=== PATIENT | male | born 1970 | race Caucasian/White ===

== ENCOUNTER 2017-03-08 09:36 | Inpatient (IN) | payer OTHER ==
[~2017-03-08] VITALS: Ht 175.3 cm; Wt 96.2 kg
[~2017-03-08 09:36] MED LIST: ATOR20TA58 PO; FLUT1DIS3 IH; INSU100I13 SQ; INSU100I9 SQ
[2017-03-08 10:14] VITALS: BP 109/73
[2017-03-08 10:17] VITALS: BP 109/73
[2017-03-08 11:01] LABS: BASO # 0.1 x10^3/uL (0.0-0.2); BASO % 1 % (0-3); EOS # 0.1 x10^3/uL (0.0-0.7); EOS % 1 % (0-3); HEMATOCRIT 29.8 % (39.0-53.0); HEMOGLOBIN 9.6 g/dL (13.0-17.5); LYMPH # 0.8 x10^3/uL (1.0-4.8); LYMPH % 5 % (24-48); MEAN CORPUSCULAR HEMOGLOBIN 27 pg (25-35); MEAN CORPUSCULAR HGB CONC 32 g/dL (31-37); MEAN CORPUSCULAR VOLUME 85 fL (79-100); MONO # 1.4 x10^3/uL (0.0-1.1); MONO % 9 % (0-9); NEUT # 13.2 x10^3uL (1.8-7.7); NEUT % 85 % (31-73); PLATELET COUNT 487 x10^3/uL (140-400); RED BLOOD COUNT 3.53 x10^6/uL (4.30-5.70); RED CELL DISTRIBUTION WIDTH 15.3 % (11.5-14.5); WHITE BLOOD COUNT 15.6 x10^3/uL (4.0-11.0)
[2017-03-08 11:26] LABS: ALBUMIN 2.6 g/dL (3.4-5.0); ALBUMIN/GLOBULIN RATIO 0.7 (1.0-1.7); CALCIUM 8.5 mg/dL (8.5-10.1); CREATININE 1.2 mg/dL (0.7-1.3); GFR 64.9; POTASSIUM 5.6 mmol/L (3.5-5.1); TOTAL PROTEIN 6.5 g/dL (6.4-8.2)
[2017-03-08 11:32] LABS: TOTAL BILIRUBIN 1.5 mg/dL (0.2-1.0)
[2017-03-08] MEDS ORDERED: VANCOMYCIN PER PHARMACY MC PRN (12:25)
[2017-03-08] MEDS ORDERED: ATOR40TA59 PO (12:32)
--- NOTE | 2017-03-08 12:36 | RAD ---
Exam: AP portable chest. History: Shortness of breath, chest pressure. Comparison: None. Findings: Cardiac silhouette appears borderline in size. Median sternotomy wires are present. No pneumothorax is seen. There is apparent rounded consolidation at the right lung base which could measure up to 4 cm. There is opacification of left inferior hemithorax, could be combination of pleural effusion and atelectasis versus pneumonia or other airspace disease. Pulmonary vascularity appears accentuated. Impression: 1. Pulmonary vascularity appears accentuated, may indicate pulmonary vascular congestion. 2. Opacification of left inferior hemithorax, which may be from combination of pleural effusion and associated atelectasis versus pneumonia. 3. Apparent rounded consolidation at the right lung base. This could represent focus of pneumonia or possibly mass. 4. Further evaluation of above abnormalities could be made with CT of the chest with intravenous contrast.
[2017-03-08] MEDS ORDERED: TEMA15CA PO (12:46)
[2017-03-08] MEDS ORDERED: CYCL10TA2 PO (12:48)
[2017-03-08] MEDS ORDERED: DOXY100C2 PO (12:48)
[2017-03-08] MEDS ORDERED: SPIR25TA3 PO (12:48)
[2017-03-08] MEDS ORDERED: CARV3.12 PO (12:49)
[2017-03-08] MEDS ORDERED: OXYC-323 PO (12:49)
[2017-03-08] MEDS ORDERED: ASPI81TA2 PO (12:50)
[2017-03-08] MEDS ORDERED: LISI2.5T PO (12:50)
[2017-03-08] MEDS ORDERED: VANCOMYCIN 2 GM in IV NORMAL SALINE 500ML 500 ML IV ONE (13:00)
[2017-03-08] MEDS ORDERED: TEMAZEPAM 15 MG CAPSULE PO PRN (13:15)
[2017-03-08] MEDS ORDERED: CYCLOBENZAPRINE 10 MG TABLET. PO PRN (13:15)
[2017-03-08 13:16] LABS: % BANDS 4 % (0-9); % LYMPHS 4 % (24-48); % METAS 2 % (0-0); % MONOS 5 % (0-10); % SEGS 85 % (35-66)
[2017-03-08] MEDS ORDERED: SPIRONOLACTONE 25 MG TABLET PO SCH (13:30)
[2017-03-08] MEDS ORDERED: LISINOPRIL 2.5 MG TABLET PO SCH (13:30)
[2017-03-08 13:33] LABS: ANISOCYTOSIS MOD; HYPOCHROMIA SLIGHT; MICROCYTOSIS SLIGHT; PLT ESTIMATE INCREASED (ADEQUATE); POLYCHROMASIA MOD
[2017-03-08 13:34] LABS: TOXIC GRANULATION SLIGHT
--- NOTE | 2017-03-08 13:53 | EKG ---
[address] [address] Test Date: 2017-03-08 Test Time: 10:10:05 Pat Name: ALEXANDRIA STEINBERG Department: Room: 111 A Gender: M Charger: KYLIE : 1970 Requested By: DEMETRIUS LOPEZ Order Number: [id number] Reading MD: Federico Tracy Measurements Intervals [place] Rate: 97 P: 43 DE: 154 QRS: 110 QRSD: 80 T: 156 QT: 362 QTc: 464 Interpretive Statements SINUS RHYTHM POSSIBLE RIGHT SIDED EKG CANNOT RULE OUT HIGH LATERAL INFARCT Electronically Signed On 03-09-2017 15:51:47 CDT by Federico Tracy
[2017-03-08] MEDS: DOXYCYCLINE HYCLATE 100 MG TABLET PO SCH ×2 (14:25→21:29)
[2017-03-08] MEDS: ASPIRIN 81 MG TAB.CHEW PO SCH (14:25)
[2017-03-08] MEDS: CARVEDILOL 3.125 MG TABLET PO SCH ×2 (14:26→17:41)
[2017-03-08] MEDS: INSULIN DETEMIR 300 UNITS/3 ML INSULN.PEN. SQ SCH ×2 (14:29→21:32)
[2017-03-08 15:25] VITALS: BP 113/73
--- NOTE | 2017-03-08 16:19 | RAD ---
Bilateral lower extremity venous Doppler ultrasound History: Bilateral lower extremity swelling. Comparison: None. Procedure: Color Doppler, spectral Doppler, and grayscale images are obtained with and without compression in the area of the common femoral vein, superficial femoral vein - femoral vein junction, main femoral vein (superficial femoral vein) and popliteal vein. Veins of the proximal calf are also imaged. Findings: There is occlusive deep venous thrombosis involving bilateral popliteal veins extending into the tibioperoneal trunks and the proximal bilateral calf veins. Thrombosis is presumably acute. There is also evidence of a deep venous thrombosis involving the left femoral vein in the distal thigh. Bilateral common femoral veins appear patent as well as bilateral femoral veins of the proximal and mid thighs. Impression: Examination is positive for bilateral deep venous thrombosis as described above.
--- NOTE | 2017-03-08 17:00 | PDOC2 ---
CONSULT The patient has been seen and examined and the full consult has been dictated.~ I have summarized the most important points for review while the note is being transcribed.~ Please see the dictation for complete details. Summary: ADHF: Renetta riojas CMP/CAD: Echo and old reports DCT: Renetta Salinas Problems: SAVI FARRAR MD Mar 08, 2017 17:00
[2017-03-08] MEDS: APIXABAN 5 MG TABLET. PO SCH (17:40)
[2017-03-08] MEDS: FUROSEMIDE INJ 100 MG in IV NORMAL SALINE 100ML 90 ML IV PRN (17:42)
[2017-03-08 19:44] VITALS: BP 103/66
[2017-03-08] MEDS ORDERED: MORPHINE SULFATE 2 MG/ML DISP.SYRIN. IV PRN (19:45)
[2017-03-08 20:35] LABS: BILIRUBIN,URINE NEG (NEG); CLARITY,URINE CLEAR; COLOR,URINE AMBER; GLUCOSE,URINE >=1000 mg/dL (NEG)
[2017-03-08 20:36] LABS: NITRITE,URINE NEG (NEG); UROBILINOGEN,URINE 4 mg/dL (0.2 mg/dL)
[2017-03-08 20:38] LABS: RBC,URINE OCC /HPF (0-2)
[2017-03-08 20:39] LABS: BACTERIA,URINE 0 /HPF (0-FEW); SQUAMOUS EPITHELIAL CELL,UR OCC /LPF
[2017-03-08] MEDS ORDERED: ENOXAPARIN ** NOTE DOSE ** SYRINGE SQ SCH (21:00)
[2017-03-08] MEDS ORDERED: ATORVASTATIN CALCIUM 20 MG TABLET PO SCH (21:00)
[2017-03-08] MEDS ORDERED: ENOXAPARIN 40 MG/0.4 ML DISP.SYRIN. SQ SCH (21:00)
[2017-03-08] MEDS ORDERED: APIXABAN 5 MG TABLET. PO SCH (21:00)
--- NOTE | 2017-03-08 21:15 | CONS ---
DATE OF CONSULTATION: CARDIOLOGY CONSULTATION REQUESTING PHYSICIAN: Jerry Palacios MD REASON FOR CONSULTATION: Edema and shortness of breath. HISTORY: This is a 46-year-old white male, who was in [place] recently on work when he developed nausea and vomiting, and was taken to a local hospital there, and had a positive troponin and abnormal ECG and had cardiac catheterization, which showed 3-vessel disease. Three days later, he underwent a CABG with RADER to the LAD, vein graft to the diagonal and a vein graft to the obtuse marginal, on 02/25/2017. He had a long postoperative course. He was discharged, and then took a 2-day road trip back and got back to [place] last night. This morning, he went to see Dr. Palacios because of persistent edema, and blistering new on the right leg (he previously had blistering of the left leg), and he was admitted to the hospital. He does complain of shortness of breath. He denies any chest pain other than incisional pain. REVIEW OF SYSTEMS: Shortness of breath, incisional chest pain, edema, blistering. There are no palpitations. Rest of the 10 organ review of system is negative. PREVIOUS MEDICAL HISTORY: He has had prior EKGs and stress tests which are negative. He recently had a cardiac catheterization which showed multivessel disease. The report is pending. He had CABG as described above. He has a longstanding history of diabetes for 16 years. There is no prior history of strokes. FAMILY HISTORY: His father at age 49 with an AK. His mother of noncardiac causes at the age of 47. None of his siblings have coronary artery disease. SOCIAL HISTORY: He takes alcohol on social occasions. He does not smoke. He is . He travels for work. CURRENT MEDICATIONS: (that he was discharged from [place]), aspirin 81 mg, Lipitor 40 mg, Coreg 3.125 b.i.d., cyclobenzaprine, doxycycline, insulin, lisinopril 2.5, oxycodone, spironolactone and temazepam. PHYSICAL EXAMINATION: GENERAL: He appears fairly comfortable lying supine. VITAL SIGNS: His temperature is 97.9. His pulse rate is 94 and regular with a blood pressure of 113/70. O2 sats are at 90% on room air. HEENT: Pupils equal and reactive. Extraocular movements are normal. Sclerae clear. Mucous membranes are moist. NECK: Supple. No thyromegaly. Jugular venous pressure is difficult to assess, but does not appear to be significantly elevated. There are no carotid bruits. His apical impulse is not palpable. There are no parasternal pulsations or heaves. HEART: First and second heart sounds appeared normal. There are no murmurs, rubs or gallops. CHEST: Normal to percuss. Chest expansion is diminished. There are severely diminished breath sounds, left worse than right. He has crackles on the left base. EXTREMITIES: Revealed moderate pitting edema bilaterally with blistering in both legs. He has a reddish purplish mottling in the sole of his left leg. There are no other skin rashes. NEUROLOGIC: There is no facial asymmetry. There are no motor or sensory deficits. INVESTIGATIONS: His EKG shows prior anteroseptal infarct without any ST or T-wave abnormalities. LABORATORY DATA: Show WBC of 15.6, hemoglobin of 9.6. Sodium is 129, potassium 5.6, BUN 34, creatinine 1.2. His ALT is 92, alkaline phosphatase is 227. His ProBNP is 10,828, albumin 2.6. His chest x-ray shows evidence of pulmonary vascular congestion, possible consolidation of the right lung base, and left pleural effusion. His lower extremity venous duplex shows evidence of DVT affecting bilateral popliteal veins. IMPRESSION: 1. Acute exacerbation of systolic congestive heart failure: We shall place the patient on Lasix drip. The patient is fluid overloaded. We will follow his labs. 2. Cardiomyopathy, ischemic: He was told that his heart is weak enough and that he might need a transplant. We shall try and get the echo report from [place]. I will repeat an echo over here. 3. Coronary artery disease: He is status post recent CABG as described above. He has no angina. 4. Hyperkalemia: I will hold his ANOOP inhibitors and spironolactone for now. 5. Deep venous thrombosis: We shall start him on Eliquis. He had a 2-day road trip without any anticoagulation and in the presence of poor cardiac output resulted in this. 6. Diabetes: Longstanding for 16 years. Per primary care. 7. Anemia: Postoperative. 8. Increased WBC: Question cause. He is on antibiotics. Thank you for the consult. SAVI FARRAR MD DR: Samantha JOB#: [id number] / [id number]
[2017-03-08] MEDS ORDERED: IV NORMAL SALINE 250ML 250 ML ONE (21:25)
--- NOTE | 2017-03-08 22:20 | ACF ---
Admission Criteria Forms HEART FAILURE Clinical Indications for Admission to Inpatient Care (Place 'X' for any and all applicable criteria): Admission is indicated by ANY ONE of the following(1)(2)(3)(4): [ ]I. Severe electrolyte abnormalities requiring inpatient care(9) [ ]II. Hemodynamic instability [ ]III. Anasarca [ ]IV. Acute cardiac ischemia causing or associated with failure (Also use Angina or Myocardial Infarction as appropriate) [ ]V. Cardiac arrhythmias of immediate concern [ ]. Precipitating cause for acute decompensation (eg, pneumonia, pulmonary embolism) requires inpatient care [ ]VII. Pulmonary edema that is very severe (eg, mechanical ventilation needed, imminent or likely, need for 100% oxygen to keep oxygen saturation above 90%) [ ]VIII. Inpatient admission required rather than observation care (Also use Heart Failure: Observation Care as appropriate) because of ANY ONE of the following: [ ]a) Pulmonary edema that is severe or worsening as indicated by ALL of the following: [ ]i) New need for oxygen therapy to keep oxygen saturation above 90% (or increased FiO2 need from baseline) [ ]ii) Has not improved sufficiently with emergency department or observation care IV diuretics or other heart failure treatments[C] [ ]b) Cognitive impairment that is severe or persistent [ ]c) Increased creatinine (new on laboratory test) with reduction of more than 50% in estimated glomerular filtration rate from baseline. [ ]d) Acute renal insufficiency (progressively (ongoing) rising creatinine (known from past laboratory test) with reduction of more than 25% in estimated glomerular filtration rate from baseline) [ ]e) Acute peripheral ischemia (eg, pulseless, cool, mottled, or cyanotic extremity) [ ]f) Acute renal failure [ ]g) Supplemental O2 or respiratory treatment for >24 hr that are performable only in acute inpatient setting [ ]h) Pulmonary artery catheter monitoring [ ]i) Other condition, treatment or monitoring requiring inpatient admission [X]IX. Contraindications and/or Inappropriate clinical situations for Observational Care in patients with Heart Failure, when ANY ONE of the following is required: [ ]a) Patient with High risk of cardiac embolism (e.g, patients with previous cardiac embolism, LVEF < 40%, age >75 and patients with prosthetic valve) 18 [ ]b) Patient with Moderate risk including DM patient, CAD and patient aged 65-75 [ ]c) Patient with any change in cardiac biomarker especially troponin should be managed as high risk in an inpatient setting 19 [ ]d) Physician judgement irrespective of ECG and other diagnostic findings 20 [ ]e) Patients with hyponatremia have high risk for mortality and require more extensive care and length of stay 21 [X]f) Need for large volume diuresis 21 [ ]g) Presence of renal insufficiency or hypotension limiting speed of diuresis 21 [ ]h) Acute cardiac Ischemia in the elderly 21 [ ]i) Patients with a 30 day risk of mortality based on a multidimensional prognostic index (MPI) [J,]21 [ ]X. General contraindications and/or Inappropriate clinical situations for Observational Care in patients with Heart Failure, when ANY ONE of the following is required: [ ]a) Prediction of prolongation of LOS based on ANY ONE of the following may be considered as a contraindication for observational care 2, 3, 4, 5, 6, 7, 8 , 9, 10, 11 [ ]i) Age > 65 yrs. [ ]ii) Patient arriving by ambulance [ ]iii) Patient with high acuity [ ]iv) Patient requiring vital sign monitoring [ ]v) Patient on IV medication [ ]b) Systolic blood pressures 180mmHg 3,12 [ ]c) Patient with altered mental status including delirium and other alteration of consciousness, (3) [ ]d) Patient whose discharge disposition will be to a senior care home or rehabilitation home should not be managed in Emergency Department Observation Unit. CMS rule requires 3 days hospital stay before such placement.3,13 [ ]e) Patient with failure to thrive due to broad array of etiologies 3,16,17 [ ]f) Inability to ambulate 3,14 Extended stay beyond goal length of stay may be needed for(1)(3)(21)(25): [ ]a) Cardiac ischemia, confirmed or suspected as precipitant [ ]b) Cardiogenic shock or refractory pulmonary edema [ ]c) Acute kidney injury or renal failure [ ]d) Respiratory failure (eg, need for noninvasive or invasive mechanical ventilation) (23) [ ]e) Concomitant pneumonia or significant electrolyte abnormality (eg, severe hyponatremia) [ ]f) Newly diagnosed (new onset) atrial fibrillation [ ]g) Stage IV chronic kidney disease (estimated glomerular filtration rate of less than 30 mL/min/1.73m2 (0.50 mL/sec/1.73m2), and not previously on chronic dialysis The original [facility] content created by [facility] has been revised. The portions of the content which have been revised are identified through the use of italic text or in bold, and [facility] has neither reviewed nor approved the modified material. All other unmodified content is copyright [facility]. Please see references footnoted in the original [facility] edition 2016 Admission Criteria Met?: Yes TARA TODD Mar 08, 2017 22:20
[2017-03-08 22:48] VITALS: BP 96/61
[2017-03-08] MEDS: VANCOMYCIN 1.5 GM in IV NORMAL SALINE 500ML 500 ML IV SCH (23:51)
[2017-03-09] MEDS ORDERED: IV NORMAL SALINE 100ML 100 ML ONE (03:44)
[2017-03-09] MEDS ORDERED: FUROSEMIDE 100 MG/10 ML VIAL ONE (03:44)
[2017-03-09] MEDS: FUROSEMIDE INJ 100 MG in IV NORMAL SALINE 100ML 90 ML IV PRN (03:49)
[2017-03-09 05:05] VITALS: BP 108/70
[2017-03-09 05:48] LABS: BASO # 0.1 x10^3/uL (0.0-0.2); BASO % 1 % (0-3); EOS # 0.1 x10^3/uL (0.0-0.7); EOS % 1 % (0-3); HEMATOCRIT 26.3 % (39.0-53.0); HEMOGLOBIN 8.6 g/dL (13.0-17.5); LYMPH % 7 % (24-48); MEAN CORPUSCULAR HEMOGLOBIN 28 pg (25-35); MEAN CORPUSCULAR HGB CONC 33 g/dL (31-37); MEAN CORPUSCULAR VOLUME 84 fL (79-100); MONO # 1.5 x10^3/uL (0.0-1.1); MONO % 11 % (0-9); NEUT # 11.1 x10^3uL (1.8-7.7); NEUT % 80 % (31-73); PLATELET COUNT 481 x10^3/uL (140-400); RED BLOOD COUNT 3.13 x10^6/uL (4.30-5.70); RED CELL DISTRIBUTION WIDTH 15.2 % (11.5-14.5); WHITE BLOOD COUNT 13.9 x10^3/uL (4.0-11.0)
[2017-03-09 07:50] LABS: CALCIUM 8.2 mg/dL (8.5-10.1); CREATININE 1.3 mg/dL (0.7-1.3); GFR 59.2; POTASSIUM 4.7 mmol/L (3.5-5.1)
[2017-03-09] MEDS ORDERED: PNEUMOC CONJ VACC 23-VALENT 0.5 ML VIAL. VAX IM ONE (09:00)
--- NOTE | 2017-03-09 09:04 | PDOC ---
GARFIELD KERN SAFETY TECHNICIAN 03/09/17 0904: PROGRESS NOTES Diagnosis Problem Problems Medical Problems: (1) Bilateral lower extremity edema Status: Acute (2) Shortness of breath Status: Acute Assessment We are seeing the patient for acute systolic heart failure 1. Acute congestive heart failure: Planning to transfer to . Echo pending. 2. Cardiomyopathy, ischemic: Plan for echo today 3. Coronary artery disease: Status post recent CABG, Symptom free at this point 4. Hyperkalemia: Improved with holding jeremy and Aldactone. 5. Deep venous thrombosis: Continue Eliquis. 6. Diabetes: treatment per primary care. 7. Anemia: Postoperative. 8. Increased WBC: Question cause. He is on antibiotics. Problems: Subjective Says breathing and swelling have improved. Denies any chest pain or palpitations. He had concerns with care and is transferring to . Objective Vital Signs Date Time Temp Pulse Resp B/P Pulse Ox O2 Delivery O2 Flow Rate FiO2 03/09/17 08:02 Room Air 03/09/17 05:05 99.1 86 18 108/70 97 2.0 Intake and Output 03/09/17 07:00 Intake Total 1947.52 ml Output Total 750 ml Balance 1197.52 ml Intake Oral 540 ml IV Total 1407.52 ml Output Urine Total 750 ml Abdomen: Normal bowel sounds, Soft, No tenderness Heart: Regular rate, Normal S1, Normal S2, No murmurs Extremities: Other (+ edemea) General: Alert, Oriented X3, Cooperative HEENT: EOMI, Mucous membr. moist/pink Lungs: Other (few crackles) Psych/Mental Status: Mental status NL, Mood NL Review of Relevant I have reviewed the following items marvel (where applicable) has been applied. Labs Laboratory Tests Test 03/08/17 10:50 03/08/17 11:17 03/08/17 17:03 03/08/17 17:40 White Blood Count 15.6x10^3/uL (4.0-11.0) Red Blood Count 3.53x10^6/uL (4.30-5.70) Hemoglobin 9.6g/dL (13.0-17.5) Hematocrit 29.8% (39.0-53.0) Mean Corpuscular Volume 85fL (79-100) Mean Corpuscular Hemoglobin 27pg (25-35) Mean Corpuscular Hemoglobin Concent 32g/dL (31-37) Red Cell Distribution Width 15.3% (11.5-14.5) Platelet Count 487x10^3/uL (140-400) Neutrophils (%) (Auto) 85% (31-73) Lymphocytes (%) (Auto) 5% (24-48) Monocytes (%) (Auto) 9% (0-9) Eosinophils (%) (Auto) 1% (0-3) Basophils (%) (Auto) 1% (0-3) Neutrophils # (Auto) 13.2x10^3uL (1.8-7.7) Lymphocytes # (Auto) 0.8x10^3/uL (1.0-4.8) Monocytes # (Auto) 1.4x10^3/uL (0.0-1.1) Eosinophils # (Auto) 0.1x10^3/uL (0.0-0.7) Basophils # (Auto) 0.1x10^3/uL (0.0-0.2) Segmented Neutrophils % 85% (35-66) Band Neutrophils % 4% (0-9) Lymphocytes % 4% (24-48) Monocytes % 5% (0-10) Metamyelocytes % 2% (0-0) Toxic Granulation Slight Platelet Estimate Increased (ADEQUATE) Large Platelets Occ Polychromasia Mod Hypochromasia Slight Anisocytosis Mod Microcytosis Slight Sodium Level 129mmol/L (136-145) Potassium Level 5.6mmol/L (3.5-5.1) Chloride Level 95mmol/L (98-107) Carbon Dioxide Level 29mmol/L (21-32) Anion Gap 5 (6-14) Blood Urea Nitrogen 34mg/dL (8-26) Creatinine 1.2mg/dL (0.7-1.3) Estimated GFR (Cockcroft-Gault) 64.9 BUN/Creatinine Ratio 28 (6-20) Glucose Level 355mg/dL (70-99) Calcium Level 8.5mg/dL (8.5-10.1) Total Bilirubin 1.5mg/dL (0.2-1.0) Aspartate Amino Transf (AST/SGOT) 28U/L (15-37) Alanine Aminotransferase (ALT/SGPT) 92U/L (16-63) Alkaline Phosphatase 227U/L (46-116) MQ-Oya-N-Type Natriuretic Peptide 21592rr/mL (0-124) Total Protein 6.5g/dL (6.4-8.2) Albumin 2.6g/dL (3.4-5.0) Albumin/Globulin Ratio 0.7 (1.0-1.7) Glucose (Fingerstick) 331mg/dL (70-99) 311mg/dL (70-99) Lactic Acid Level 1.4mmol/L (0.4-2.0) Test 03/08/17 18:05 03/08/17 20:08 03/09/17 05:30 03/09/17 07:37 Urine Collection Type Unknown Urine Color Candice Urine Clarity Clear Urine pH 5.5 Urine Specific Riley 1.015 Urine Protein 30 mg/dl (NEG-TRACE) Urine Glucose (UA) >=1000mg/dL (NEG) Urine Ketones (Stick) Tracemg/dL (NEG) Urine Blood Trace (NEG) Urine Nitrite Neg (NEG) Urine Bilirubin Neg (NEG) Urine Urobilinogen Dipstick 4mg/dL (0.2 mg/dL) Urine Leukocyte Esterase Neg (NEG) Urine RBC Occ/HPF (0-2) Urine WBC 1-4/HPF (0-4) Urine Squamous Epithelial Cells Occ/LPF Urine Bacteria 0/HPF (0-FEW) Glucose (Fingerstick) 283mg/dL (70-99) White Blood Count 13.9x10^3/uL (4.0-11.0) Red Blood Count 3.13x10^6/uL (4.30-5.70) Hemoglobin 8.6g/dL (13.0-17.5) Hematocrit 26.3% (39.0-53.0) Mean Corpuscular Volume 84fL (79-100) Mean Corpuscular Hemoglobin 28pg (25-35) Mean Corpuscular Hemoglobin Concent 33g/dL (31-37) Red Cell Distribution Width 15.2% (11.5-14.5) Platelet Count 481x10^3/uL (140-400) Neutrophils (%) (Auto) 80% (31-73) Lymphocytes (%) (Auto) 7% (24-48) Monocytes (%) (Auto) 11% (0-9) Eosinophils (%) (Auto) 1% (0-3) Basophils (%) (Auto) 1% (0-3) Neutrophils # (Auto) 11.1x10^3uL (1.8-7.7) Lymphocytes # (Auto) 1.0x10^3/uL (1.0-4.8) Monocytes # (Auto) 1.5x10^3/uL (0.0-1.1) Eosinophils # (Auto) 0.1x10^3/uL (0.0-0.7) Basophils # (Auto) 0.1x10^3/uL (0.0-0.2) Sodium Level 133mmol/L (136-145) Potassium Level 4.7mmol/L (3.5-5.1) Chloride Level 98mmol/L (98-107) Carbon Dioxide Level 31mmol/L (21-32) Anion Gap 4 (6-14) Blood Urea Nitrogen 24mg/dL (8-26) Creatinine 1.3mg/dL (0.7-1.3) Estimated GFR (Cockcroft-Gault) 59.2 Glucose Level 145mg/dL (70-99) Calcium Level 8.2mg/dL (8.5-10.1) Test 03/09/17 07:54 Glucose (Fingerstick) 140mg/dL (70-99) Medications Current Medications Vancomycin HCl 1 each 1 each PRN DAILY PRN MC SEE COMMENTS Last administered on 03/08/17 16:33; Start 03/08/17 at 12:25 Vancomycin HCl 2 gm/Sodium Chloride 500 ml @ 250 mls/hr 1X ONCE IV Last administered on 03/08/17 14:25; Start 03/08/17 at 13:00; Stop 03/08/17 at 14:59 ; Status DC Vancomycin HCl/ Sodium Chloride (Iv Sodium Chloride 0.9% 500ml) 500 ml @ 250 mls/hr Q12H IV Last administered on 03/08/17 23:51; Start 03/09/17 at 00:00 Pneumococcal Polyvalent Vaccine (Pneumovax 23) 0.5 ml ONCE ONCE VAX IM ; Start 03/09/17 at 09:00; Stop 03/09/17 at 09:01 Aspirin (Children'S Aspirin) 81 mg DAILY PO Last administered on 03/08/17 14: 25; Start 03/08/17 at 13:30 Carvedilol (Coreg) 3.125 mg BIDWMEALS PO Last administered on 03/08/17 17:41; Start 03/08/17 at 13:30 Cyclobenzaprine HCl (Flexeril) 10 mg PRN Q8HRS PRN PO MUSCLE SPASMS Last administered on 03/08/17 21:32; Start 03/08/17 at 13:15 Lisinopril (Prinivil) 2.5 mg DAILY PO Last administered on 03/08/17 14:26; Start 03/08/17 at 13:30; Stop 03/08/17 at 16:52; Status DC Spironolactone (Aldactone) 25 mg DAILY PO Last administered on 03/08/17 14:26 ; Start 03/08/17 at 13:30; Stop 03/08/17 at 16:52; Status DC Temazepam (Restoril) 15 mg PRN QHS PRN PO INSOMNIA Last administered on 21:29; Start 03/08/17 at 13:15 Atorvastatin Calcium (Lipitor) 40 mg QHS PO Last administered on 03/08/17 21: 29; Start 03/08/17 at 21:00 Doxycycline Hyclate (Vibra-Tab) 100 mg BID PO Last administered on 03/08/17 21 :29; Start 03/08/17 at 13:30 Insulin Detemir (Levemir) 32 units BID SQ Last administered on 03/08/17 21:32 ; Start 03/08/17 at 13:30 Enoxaparin Sodium 40 mg 40 mg Q24H SQ ; Start 03/08/17 at 21:00; Status Cancel Levofloxacin/ Dextrose (LEVAQUIN 750mg PREMIX) 150 ml @ 150 mls/hr Q24H IV Last administered on 03/08/17 21:28; Start 03/08/17 at 17:00 Enoxaparin Sodium (Lovenox 100mg Syringe) 100 mg Q12HR SQ ; Start 03/08/17 at 21 :00; Stop 03/08/17 at 21:00; Status DC Vancomycin HCl 1 each 1 each 1X ONCE MC ; Start 03/09/17 at 23:30; Stop at 23:31 Furosemide/Sodium Chloride (Lasix/Iv Sodium Chloride 0.9% 100ml) 100 ml @ 0 mls/ hr CONT PRN IV SEE I/O RECORD Last administered on 03/09/17 03:49; Start 03/08 at 17:00 Apixaban (Eliquis) 5 mg BID PO ; Start 03/08/17 at 21:00; Stop 03/08/17 at 21:00 ; Status DC Apixaban (Eliquis) 10 mg BID PO Last administered on 03/08/17 17:40; Start at 17:45 Morphine Sulfate 2 mg 2 mg PRN Q2HR PRN IV PAIN; Start 03/08/17 at 19:45 Sodium Chloride 250 ml @ As Directed STK-MED ONCE .ROUTE Last administered on 03/08/17 21:29; Start 03/08/17 at 21:25; Stop 03/08/17 at 21:26; Status DC Sodium Chloride (Iv Sodium Chloride 0.9% 100ml) 100 ml @ As Directed STK-MED ONCE .ROUTE ; Start 03/09/17 at 03:44; Stop 03/09/17 at 03:45; Status DC Furosemide (Lasix) 100 mg STK-MED ONCE .ROUTE ; Start 03/09/17 at 03:44; Stop at 03:45; Status DC Active Scripts Active Reported Lisinopril 2.5 Mg Tablet 1 Tab PO DAILY Aspirin 81 Mg Tab.chew 81 Mg PO DAILY Coreg (Carvedilol) 3.125 Mg Tablet 1 Tab PO BID Percocet 5-325 Mg Tablet (Oxycodone Hcl/Acetaminophen) 1 Each Tablet 1-2 Tab PO Q4-6HRS PRN Spironolactone 25 Mg Tablet 0.5 Tab PO DAILY Cyclobenzaprine Hcl 10 Mg Tablet 1 Tab PO Q8HRS PRN Doxycycline Hyclate 100 Mg Capsule 1 Cap PO BID Temazepam 15 Mg Capsule 0.5 Cap PO QHS PRN Atorvastatin Calcium 40 Mg Tablet 1 Tab PO QHS Advair 250-50 Diskus (Fluticasone/Salmeterol) 1 Each Disk.w.dev 1 Each IH Lantus Solostar (Insulin Glargine,Hum.rec.anlog) 100 Unit/1 Ml Insuln.pen 32 Unit SQ BID Vitals/I & O Vital Sign - Last 24 Hours 03/08/17 03/08/17 03/08/17 03/08/17 10:14 10:17 12:52 14:26 Temp 97.9 97.9 Pulse 89 89 89 Resp 20 20 B/P 109/73 109/73 109/73 Pulse Ox 94 94 O2 Delivery Room Air 03/08/17 03/08/17 03/08/17 03/08/17 14:26 15:25 17:41 19:20 Temp 97.7 Pulse 89 94 94 Resp 20 B/P 109/73 113/73 113/73 Pulse Ox 90 O2 Delivery Room Air 03/08/17 03/08/17 03/09/17 03/09/17 19:44 22:48 05:05 08:02 Temp 98.0 99.1 99.1 Pulse 93 89 86 Resp 18 20 18 B/P 103/66 96/61 108/70 Pulse Ox 90 95 97 O2 Delivery Room Air Nasal Cannula Nasal Cannula Room Air O2 Flow Rate 2.0 2.0 Intake and Output 03/08/17 03/08/17 03/09/17 15:00 23:00 07:00 Intake Total 1104.52 ml 843 ml Output Total 400 ml 350 ml Balance 704.52 ml 493 ml PAMELA BECKETT Jr, MD 03/11/17 0444: PROGRESS NOTES Assessment The patient was seen by Garfield Kern APRN, and I have reviewed her findings and plan and agree with above. Due to staffing constraints, we did not have an attending available on this day to see the patient. Problems: GARFIELD KERN APRN Mar 09, 2017 09:04 PAMELA BECKETT Jr, MD Mar 11, 2017 04:44
[2017-03-09] MEDS: ASPIRIN 81 MG TAB.CHEW PO SCH (09:27)
[2017-03-09] MEDS: APIXABAN 5 MG TABLET. PO SCH (09:27)
[2017-03-09] MEDS: CARVEDILOL 3.125 MG TABLET PO SCH (09:28)
[2017-03-09] MEDS: INSULIN DETEMIR 300 UNITS/3 ML INSULN.PEN. SQ SCH (09:33)
[2017-03-09 10:54] VITALS: BP 92/49
[2017-03-09 12:15] VITALS: BP 108/70
[2017-03-09] MEDS: VANCOMYCIN 1.5 GM in IV NORMAL SALINE 500ML 500 ML IV SCH (13:33)
[2017-03-09 16:18] VITALS: BP 94/63
--- NOTE | 2017-03-10 09:28 | CARD ---
APPROVED REPORT EXAM: Two-dimensional and M-mode echocardiogram with Doppler and color Doppler. Other Information Quality : GoodHR: 83bpm Rhythm : NSR INDICATION SOB, Severe lower extremity edema bilaterally 2D DIMENSIONS RVDd3.3 (2.9-3.5cm)Left Atrium(2D)4.1 (1.6-4.0cm) IVSd1.2 (0.7-1.1cm)Aortic Root(2D)3.1 (2.0-3.7cm) LVDd6.0 (3.9-5.9cm)LVOT Diameter2.3 (1.8-2.4cm) PWd1.2 (0.7-1.1cm)LVDs4.6 (2.5-4.0cm) FS (%) 23.7 %SV83.0 ml LVEF(%)46.6 (>50%) Aortic Valve AoV Peak David.123.1cm/sAoV VTI21.1cm AO Peak GR.6.1mmHgLVOT Peak David.97.7cm/s LVOT VTI 16.43cmAO Mean GR.4mmHg HERLINDA (VMAX)3.29lw0GTH (VTI)3.31cm2 Mitral Valve MV E Fsqqxxqs471.8cm/sMV E Peak Gr.5mmHg MV DECEL [id number] A Kvpzumfw92.1cm/s MV E Mean Gr.2mmHgE/A Ratio2.8 MV A [id number] Pulmonary Valve PV Peak Bkdnwsfk77.9cm/sPV Peak Grad.3mmHg Pulmonary Vein S1 Juovukez32.4cm/sD2 Lowbwxix79.9cm/s LEFT VENTRICLE The left ventricle is mildly dilated. There is mild concentric left ventricular hypertrophy. The left ventricular systolic function is severely impaired. The estimated ejection fraction is 25-30%. Trans mitral Doppler flow pattern is grade IV- fixed restrictive diastolic dysfunction. RIGHT VENTRICLE The right ventricle is normal size. The right ventricular systolic function is normal. ATRIA The left atrium size is normal. The right atrium size is normal. AORTIC VALVE The aortic valve is normal in structure and function. Doppler and Color Flow revealed no significant aortic regurgitation. There is no significant aortic valvular stenosis. MITRAL VALVE The mitral valve is normal in structure and function. There is no mitral valve stenosis. There is tra ce mitral regurgitation. TRICUSPID VALVE The tricuspid valve is normal in structure and function. There is trace tricuspid regurgitation. Unab le to determine pulmonary artery pressure. PULMONIC VALVE The pulmonary valve is not well seen. Doppler and Color Flow revealed no pulmonic valvular regurgitat ion. GREAT VESSELS The aortic root is normal in size. The ascending aorta is normal in size. The inferior vena cava is n ot well seen. PERICARDIAL EFFUSION There is no evidence of significant pericardial effusion. Critical Notification Critical Value: No <Conclusion> The left ventricle is mildly dilated. There is mild concentric left ventricular hypertrophy. The left ventricular systolic function is severely impaired. The estimated ejection fraction is 25-30 %. Transmitral Doppler flow pattern is grade IV- fixed restrictive diastolic dysfunction. Unable to determine pulmonary artery pressure.
== END 2017-03-09 17:01 | disposition short-term general hospital (02) | DRG 299 ==
LOC: 1 SOUTH 09:42
PROVIDERS: ADMIT Family Medicine; ATTEND Family Medicine
DX: I82.433 Acute embolism and thrombosis of popliteal vein, bilateral (principal); I50.23 Acute on chronic systolic (congestive) heart failure; I25.5 Ischemic cardiomyopathy; I25.10 Atherosclerotic heart disease of native coronary artery without angina pectoris; E87.5 Hyperkalemia; E11.9 Type 2 diabetes mellitus without complications; D64.9 Anemia, unspecified; Z82.49 Family history of ischemic heart disease and other diseases of the circulatory system; Z95.1 Presence of aortocoronary bypass graft
CPT/HCPCS: 36415; 71010; 80048; 80053; 81001; 82947; 83605; 83880; 85007; 85027; 87040; 87086; 93005; 93306; 93970; J1815; J1956; J2270; J3370; J7040; J7050